=== PATIENT | female | born 1980 | race Caucasian/White ===

== ENCOUNTER 2018-03-02 12:56 | Emergency (ER) | payer SELFPAY ==
[~2018-03-02] VITALS: Ht 157.5 cm; Wt 49.9 kg
--- NOTE | 2018-03-02 12:56 | NUR ---
PT BIBA ALS TO BED 7
[2018-03-02 12:58] VITALS: BP 128/92
--- NOTE | 2018-03-02 13:14 | NUR ---
PT C/O EMS FINDING HER WITH BS OF 48 AND NON RESPONSIVE, GAVE ORAL GLUCOSE AND BS WAS 82 ON ARRIVAL TO [facility], 74. NO OTHER COMPLAINTS. A/OX4 ON ARRIVAL.
--- NOTE | 2018-03-02 14:27 | NUR ---
PT RESTING COMFORTABLY IN [facility] AT THIS TIME W/ VSS, RR EVEN AND UNLABORED. PT GF IS AT BEDSIDE AT THIS TIME. SAFETY PRECAUITONS IN PLACE. WILL CONTINUE TO MONITOR.
--- NOTE | 2018-03-02 14:43 | NUR ---
PT REQUESTING TO LEAVE AT THIS TIME. ER NOTIFIED, TO SEE PT
--- NOTE | 2018-03-02 14:45 | NUR ---
ER MD CARUSO SPEAKING TO PT AT THIS TIME AT BEDSIDE.
[2018-03-02 14:48] VITALS: BP 125/89
--- NOTE | 2018-03-02 14:48 | NUR ---
PT LEFT WITHOUT DISCHARGE PAPERWORK AT THIS TIME, SAID "IM READY TO GO HOME"
== END 2018-03-02 14:48 | disposition home or self-care (01) ==
LOC: MED 12:56
DX: E11.649 Type 2 diabetes mellitus with hypoglycemia without coma (principal); R41.82 Altered mental status, unspecified
CPT/HCPCS: 70450; 71045; 81002; 81025; 82948; 99284; Q0092